=== PATIENT | male | born 1975 | race Caucasian/White ===

== ENCOUNTER 2016-11-13 21:00 | Inpatient (IN) | payer OTHER ==
[~2016-11-13] VITALS: Ht 185.4 cm; Wt 77.1 kg
--- NOTE | ~2016-11-13 | HP ---
Unit #: [id number] #: [id number] Patient: FREDERICK FERRER [id number] [place] [address] [id number] MR#: [id number] NAME: FREDERICK FERRER. ROOM: [facility] Age: 40 Sex: M Admission Date: 11/14/2016 : 1975 Attending Physician: Luis Hammond M.D. Admitting Physician: Luis Hammond M.D. Primary Care Physician: Generic Doctor Not In System HISTORY AND PHYSICAL HISTORY OF PRESENT ILLNESS The patient is a 40-year-old male admitted to [facility] on 11/14/2016 for suicidal ideations and methamphetamine abuse. PAST MEDICAL HISTORY Hepatitis C. PAST SURGICAL HISTORY None reported. 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 He is homeless. He smokes one pack of cigarettes daily. Drinks daily alcohol and methamphetamines every other day. FAMILY MEDICAL HISTORY Noncontributory. ALLERGIES Aspirin and sulfa CURRENT MEDICATIONS The patient is not on any home medications. REVIEW OF SYSTEMS CONSTITUTIONAL: No fever or chills. HEENT: Denies any sore throat, ear pain or runny nose. CARDIOVASCULAR: Denies chest pain, irregular heart rhythm or palpitations. CHEST: Denies shortness of breath or cough. No hemoptysis. GASTROINTESTINAL: Denies nausea, vomiting, diarrhea or chronic constipation. ENDOCRINE: Denies history of increased thirst or urination. No recent significant weight loss or gain. GENITOURINARY: Denies dysuria, frequency, or hematuria. SKIN: Denies any rashes. HEMATOLOGIC: Denies history of increased bleeding or bruising. MUSCULOSKELETAL: Denies any hot, swollen joints. No generalized muscle pain. NEUROLOGIC: Denies problems with vision or speech. No frequent, severe headaches. No numbness, tingling or weakness in any extremities. Denies loss of bladder or bowel control. PHYSICAL EXAM Unit #: [id number] #: [id number] Patient: FREDERICK FERRER GENERAL: She is awake, alert and oriented in no acute distress. VITAL SIGNS: Temperature 98.5, heart rate 94, respiration 18, blood pressure 142/84. HEIGHT: 6'1". WEIGHT: 170 pounds. SKIN: Warm and dry without rash or lesion. HEENT: Normocephalic. TMs not viewed. Oral and nasal passages clear. Conjunctivae clear. PERRLA. EOMs intact. NECK: Supple without lymphadenopathy or thyromegaly. HEART: Regular rate and rhythm without murmur. LUNGS: Clear. ABDOMEN: Soft, nontender. : Not done. EXTREMITIES: No evidence of cyanosis, clubbing or edema. Moves all without focal deficit. NEUROLOGICAL: Grossly within normal limits. Cranial Nerves: II: Visual curtis are intact. III, IV AND : Extraocular movements are intact. Pupils are equal, round and reactive to light. V: Facial sensation is grossly normal. VII: Facial movements and expression are normal. VIII: Auditory acuity grossly intact. IX, X: Uvula is midline. Phonation is normal. XI: Patient shrugs shoulders and turns head normally. XII: Tongue protrudes in the midline. Sensory and Motor Function: Sensory and motor sensation is grossly normal. Motor: moves all extremities well. IMPRESSION 1. Psychiatric admission. 2. Hepatitis C. 3. Polysubstance abuse. RECOMMENDATIONS Psychiatric per psychiatrist. MEDICAL: 1. No contraindication to participate in facility activities. MEDICAL PROGNOSIS Good. MEDICAL CONDITION Stable. Dictated by... Elmira Vazquez/rachelle TD: 11/15/2016 00:47 JOB #: [id number] Unit #: [id number] #: [id number] Patient: FREDERICK FERRER HISTORY AND PHYSICAL Page 1 of 1 X BUZZ CARRERA APRN HISTORY AND PHYSICAL
--- NOTE | ~2016-11-13 | PA ---
Unit #: [id number] #: [id number] Patient: FREDERICK FERRER [id number] [facility] [address] [place] [address] [id number] I MR#: [id number] NAME: FREDERICK FERRER. ROOM: P176 Age: 40 Sex: M Admission Date: 11/14/2016 : 1975 Date of Assessment: 11/14/2016 Attending Physician: Luis Hammond M.D. Admitting Physician: Luis Hammond M.D. Primary Care Physician: Generic Doctor Not In System PSYCHIATRIC ASSESSMENT DATE OF SERVICE 11/14/2016. INFORMANTS The patient's reliability, poor; chart reliability, good. CHIEF COMPLAINT Suicidal ideation, paranoia. HISTORY OF PRESENT ILLNESS Mr. Egan is a 40-year-old male, well known to this facility from his previous admission in 2011, presented with the above-mentioned complaint. The patient was treated at [facility] in 2011, inpatient at [facility] 2015, inpatient at [facility] for chemical dependency in 2016. The patient reported that he is suicidal and used eight of a gram of meth at 9 a.m. and the patient reported he wanted either to hang himself or run his truck in the wall. The patient reports that he and his girlfriend of 2 years broke up recently and reports that he does not want anything to live. For now, the patient has been fighting addiction for year. The patient reports that he was clean from alcohol for the last 5 years and stated that he wanted to drank today. The patient reported history of financial problem, history of hepatitis C, breaking up with girlfriend are the recent stressor. The patient reports decreased sleep, sleeping 5 hours. Poor appetite, loss of 15 pounds. The patient is extremely paranoid that he reports that he cannot eat any food as he is scared and he needs to open package by himself. The patient reported tobacco use, age of onset 16; alcohol, age of onset 16; opioid use in the past; amphetamine, age of onset 20; reported longest period of sobriety, 2 months; last period of sobriety in 2004. The patient reported no history of blackouts or withdrawal symptom, but history of IV drug abuse, history of hepatitis C. Currently reporting irritability, headache, muscle cramps, depressed mood, poor appetite, poor concentration, restlessness, sleep problems, tremor, and pleasant dreams. Needing inpatient admission at this time for psychiatric stabilization. PAST PSYCHIATRIC HISTORY Remarkable for history of previous treatment for depression, suicidal ideation, and substance abuse in the past as mentioned above at various facility, [facility], and [facility]. FAMILY HISTORY SOCIAL HISTORY History of substance abuse problem in father. According to the intake reports, no known history of any abuse. History of legal charges, several Unit #: [id number] #: [id number] Patient: FREDERICK FERRER, assault, heroin possession charges, paraphernalia, still on probation. No court date. MEDICAL HISTORY Hepatitis C. MEDICATION HISTORY None. ALLERGIES No known drug allergies. SUBSTANCE ABUSE HISTORY Please see above. REVIEW OF SYSTEMS HEENT: Eyes, clear. Ears, nose, mouth, and throat; clear. CARDIOVASCULAR: Unremarkable. RESPIRATORY: Unremarkable. GI: Unremarkable. : Unremarkable. SKIN: Unremarkable. LYMPH NODE: Unremarkable. NEUROLOGIC: Unremarkable. ENDOCRINE: Unremarkable. HEMATOLOGIC: Unremarkable. ALLERGIC/IMMUNOLOGIC: Unremarkable. MUSCULOSKELETAL: Muscle strength and tone, no atrophy or abnormal movement. Gait normal. MENTAL STATUS EXAMINATION CONSTITUTIONAL: Measurement of vital signs; temperature is 98.5, heart rate 94, respiratory rate 18, blood pressure is 142/84. Weight 170 pounds. GENERAL APPEARANCE: The patient dressed casually. The patient did not show any facial deformity. MUSCULOSKELETAL: Please see above. PSYCHIATRIC EXAMINATION Description of speech; regular rate, normal volume, normal articulation, coherent. Description of thought process, goal directed. Description of association, intact. Description of abnormal psychotic thinking; guarded, paranoid, delusional. Description of the patient's judgment, concerning everyday activity, poor. Social situation, poor. Concerning psychiatric condition, poor. The patient is having suicidal ideation. Denied any homicidal ideation. Complete mental status examination; oriented in time, place, and person. Recent and remote memory, fair. Attention span and concentration, fair. Language, able to name object and repeat phrases. Fund of knowledge, aware of current event and passive vocabulary intact. Mood and affect, sad and dysphoric. Insight and judgment, fair to poor. ASSETS AND LIABILITIES Assets, the patient is articulate and able to take care of his ADL. Liability, history of substance abuse, depression. ADMITTING DIAGNOSES Psychiatric: Major depressive disorder, recurrent, severe, F33.2; Unit #: [id number] #: [id number] Patient: FREDERICK FERRER psychosis, not otherwise specified, F29.0; amphetamine use disorder, severe, F15.20. Secondary diagnosis: Deferred. Medical diagnosis: Hepatitis C. Stressors: Psychosocial stressors. PSYCHIATRIC PLAN 1. Advised to admit the patient on the inpatient unit. Provide safe, supportive, and structured environment. 2. Ordered labs; CBC, CMP, UA, and UDS. 3. Precaution for self-harm, detox protocol, and detox monitoring. 4. Monitor the patient's mood and behavior. If needed, consider medication such as SSRI. The patient to attend all the programing in group therapy, individual therapy, medication management. Advised Celexa for depression and Zyprexa for psychosis. TREATMENT GOAL To attain euthymic mood, gain insight into his problem, and learn coping skills. DISCHARGE PLAN Plan to stabilize the patient and consider followup in outpatient program. ESTIMATED LENGTH OF STAY 5 days. Dictated by... Luis Hammond M.D. ABRIL/robbie TD: 11/15/2016 04:10 JOB #: [id number] PSYCHIATRIC ASSESSMENT Page 1 of 1 X Luis Hammond MD X PSYCHIATRIC ASSESSMENT
--- NOTE | ~2016-11-13 | DS ---
Unit #: [id number] #: [id number] Patient: FREDERICK FERRER [id number] [place] [address] [id number] I MR#: [id number] NAME: FREDERICK FERRER. ROOM: [facility] Age: 40 Sex: M Admission Date: 11/14/2016 : 1975 Discharge Date: 11/17/2016 Attending Physician: Luis Hammond M.D. Primary Care Physician: Generic Doctor Not In System DISCHARGE SUMMARY REASON FOR ADMISSION Suicidal ideation. DIAGNOSTIC STUDIES LABORATORY RESULTS: Potassium 5.4. Urine toxicology was positive for methamphetamine. HOSPITAL COURSE The patient was admitted to inpatient unit on 11/14/2016 and discharged on 11/17/2016. The patient was treated with chemical dependency group, structured milieu, medication management, psychoeducation, psychotherapy, expressive therapy. The patient was responsive to treatment. Subsequently, the patient was discharged with a plan to follow up in outpatient program. DISCHARGE MEDICATIONS Trazodone 50 mg at bedtime for sleep, Celexa 20 mg daily for mood symptom, and Zyprexa 5 mg b.i.d. for mood stabilization. DISCHARGE DIAGNOSES Psychiatric: Major depressive disorder, recurrent, severe, F33.2; psychosis, not otherwise specified, F29.0; amphetamine use disorder, severe, F15.20. Secondary diagnosis: Deferred. Medical diagnosis: Hepatitis C. Stressors: Psychosocial stressor. DISCHARGE INSTRUCTIONS The patient to follow up in outpatient clinic as per director social. CONDITION ON DISCHARGE The patient was pleasant and cooperative. Denied any psychotic symptom or any suicidal ideation. PROGNOSIS Guarded. DIET AND ACTIVITY As tolerated. Unit #: [id number] #: [id number] Patient: FREDERICK FERRER Dictated by... Jessica Fofana/robbie TD: 11/17/2016 17:13 JOB #: [id number] DISCHARGE SUMMARY Page 1 of 1 X Luis Hammond MD X DISCHARGE SUMMARY
--- NOTE | ~2016-11-13 | PN ---
Unit #: [id number] #: [id number] Patient: FREDERICK FERRER [id number] [facility] [address] [place] [address] [id number] I MR#: [id number] NAME: FREDERICK FERRER. ROOM: P176 Age: 40 Sex: M Admission Date: 11/14/2016 : 1975 Attending Physician: Luis Hammond M.D. Admitting Physician: Luis Hammond M.D. Primary Care Physician: Generic Doctor Not In System [facility] PROGRESS NOTES DATE 11/15/2016 DISCUSSION Mr. Egan is a 40-year-old male seen on 11/15/2016. Patient interviewed. Chart reviewed. Obtained information from nursing staff. Patient is noncompliant with medication. Reports feeling paranoid in taking medication. Also, not eating food from tray, eating only chips, which are sealed and also milk from the carton, which is sealed. Patient still having psychotic symptoms. The patient is prescribed medication. Encourage patient to take medication. Complete review of system unremarkable. MENTAL STATUS EXAMINATION General appearance, patient dressed casually, thin built. Attention span, concentration fair. Oriented in place and person. Mood and affect labile. Patient guarded, paranoid, delusional, passive SI. Recent and remote memory poor. Insight and judgement poor. DIAGNOSES 1. Mood disorder NOS. 2. Amphetamine abuse. 3. Polysubstance abuse. ASSESSMENT/PLAN Advised to continue with current medication and therapeutic protocol. If needed, consider further adjustment of medication. Continue to encourage patient to take medication. Dictated by... Jessica Fofana/dayami TD: 11/16/2016 22:58 JOB #: [id number] Unit #: [id number] #: [id number] Patient: FREDERICK FERRER [facility] PROGRESS NOTES Page 1 of 1 X Luis Hammond MD PROGRESS NOTE
--- NOTE | ~2016-11-13 | PN ---
Unit #: [id number] #: [id number] Patient: FREDERICK FERRER [id number] [facility] [address] [place] [address] [id number] I MR#: [id number] NAME: FREDERICK FERRER. ROOM: P176 Age: 40 Sex: M Admission Date: 11/14/2016 : 1975 Attending Physician: Luis Hammond M.D. Admitting Physician: Luis Hammond M.D. Primary Care Physician: Generic Doctor Not In System [facility] PROGRESS NOTES DATE OF SERVICE: 11/16/2016 DISCUSSION Frederick Ferrer is a 40-year-old male. The patient interviewed, chart reviewed, and obtained information from nursing staff. The patient sad, depressed, withdrawn, isolative, but able to contract for safety, requested for HIV and hepatitis test. The patient reports that he would like to go to a rehab, able to maintain safe behavior. REVIEW OF SYSTEMS Complete review of systems unremarkable. MENTAL STATUS EXAMINATION General appearance; the patient dressed casually, withdrawn, isolative, guarded and paranoid. Attention span and concentration, fair. Oriented in time, place, and person. Mood and affect, labile. Speech, monotone. Thought process, concrete. The patient denied any thoughts of harming self or others, but somewhat guarded. Recent and remote memory, poor. Insight and judgment, poor. DIAGNOSES Major depressive disorder, recurrent; psychosis, not otherwise specified; amphetamine use disorder, severe. ASSESSMENT AND PLAN Advised to continue with current medication and therapeutic protocol. If needed, consider further adjustment of medication. Dictated by... Jessica Fofana/robbie TD: 11/17/2016 03:05 JOB #: [id number] Unit #: [id number] #: [id number] Patient: FREDERICK FERRER [facility] PROGRESS NOTES Page 1 of 1 X Luis Hammond MD PROGRESS NOTE
[~2016-11-13 21:00] MED LIST: ACETAMINOPHEN PO; ALBUTEROL17 GM INH; BACLOFEN10 MG PO; FLEXERIL10 MG PO; NO MEDICATIONS; PHENERGAN25 MG PO; ULTRAM PO; VICODIN PO
[2016-11-14 14:01] LABS: BASOPHIL% 0.5 % (0-2.5); EOSINOPHIL# 0.2 X10e3 (0-0.7); EOSINOPHIL% 3.6 % (0.0-7.0); HEMATOCRIT 47.7 % (38.0-50.0); HEMOGLOBIN 16.1 gm/dL (13.0-16.0); LYMPHOCYTE# 1.9 X10e3 (1.0-3.5); MEAN CORPUSCULAR HEMOGLOBIN 28.6 PG (28-34); MEAN CORPUSCULAR HGB CONC 33.7 g/dL (30-36); MEAN PLATELET VOLUME 7.6 FL (6.5-11.5); MONOCYTE# 0.9 X10e3 (0-1.0); MONOCYTE% 15.5 % (3.0-12.0); NEUTROPHIL# 2.8 X10e3 (1.5-7.1); NEUTROPHIL% 47.4 % (40-75); PLATELET COUNT 213 X10e3 (140-420); RED BLOOD COUNT 5.61 X10e (3.90-5.60); RED CELL DISTRIBUTION WIDTH 14.6 % (11.0-15.5); WHITE BLOOD COUNT 5.8 X10e3 (4.0-10.5)
[2016-11-14 14:15] LABS: DIFF IND NO
[2016-11-14 14:17] LABS: ALBUMIN SERUM 4.3 g/dL (3.5-5.0); BUN/CREATININE RATIO 12.72; CALCIUM SERUM 9.5 mg/dL (8.4-10.2); CREATININE SERUM 1.1 mg/dL (0.6-1.4); GLOM FILT RATE Estimated 83.5 mL/min (>60); POTASSIUM 5.4 mmol/L (3.5-5.1); PROTEIN TOTAL SERUM 7.3 g/dL (6.0-8.3)
[2016-11-20 13:13] LABS: HA AB IGM (HEPPAN) Nonreactive (()); HB CORE AB IGM (HEPPAN) Nonreactive (Nonreactive); HB S AG (HEPPAN) Nonreactive (Nonreactive); HEP C AB (HEPPAN) Reactive (Nonreactive)
== END 2016-11-17 09:40 | DRG 885 ==
LOC: P1E 11-14 02:56
PROVIDERS: Psychiatry & Neurology Psychiatry
PROC: HZ2ZZZZ Detoxification Services for Substance Abuse Treatment (ICD-10-PCS; principal; 2016-11-14)
DX: F33.3 Major depressive disorder, recurrent, severe with psychotic symptoms (principal); F15.20 Other stimulant dependence, uncomplicated; B19.20 Unspecified viral hepatitis C without hepatic coma; Z88.6 Allergy status to analgesic agent; Z88.2 Allergy status to sulfonamides; Z91.14 Patient's other noncompliance with medication regimen; F19.10 Other psychoactive substance abuse, uncomplicated
CPT/HCPCS: 80053; 80074; 85025; 87522; 87806

== ENCOUNTER 2016-11-29 08:00 | Inpatient (IN) | payer OTHER ==
[~2016-11-29] VITALS: Ht 182.9 cm; Wt 77.1 kg
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
--- NOTE | ~2016-11-29 | PN ---
Unit #: [id number] #: [id number] Patient: FREDERICK FERRER [id number] [facility] [address] [place] [address] [id number] I MR#: [id number] NAME: FREDERICK FERRER. ROOM: P186 Age: 41 Sex: M Admission Date: 11/29/2016 : 1975 Attending Physician: Luis Hammond M.D. Admitting Physician: Luis Hammond M.D. Primary Care Physician: Generic Doctor Not In System [facility] PROGRESS NOTES DATE OF SERVICE 12/02/2016 DISCUSSION Frederick Ferrer is a 41-year-old male seen on 12/02/2016. Patient interviewed, chart reviewed. Obtained information from nursing staff. Patient continues to report feeling sad, depressed, withdrawn, isolative. Reported having suicidal thoughts. Patient was unable to contract for safety. Complete review of systems unremarkable. MENTAL STATUS EXAMINATION General appearance, patient dressed casually. Attention span and concentration fair. Oriented to time, place and person. Mood and affect sad, depressed, withdrawn, isolative. Reported suicidal thoughts. Denied any plan. Recent and remote memory poor. Insight and judgement poor. DIAGNOSES Mood disorder NOS ASSESSMENT/PLAN Advise to continue with current medication. Patient to continue with current treatment on the inpatient unit. If needed consider further adjustment of medication. Patient is currently on Zyprexa, trazodone, Celexa, vistaril combination. Dictated by... Jessica Fofana/rachelle TD: 12/02/2016 22:54 JOB #: [id number] Unit #: [id number] #: [id number] Patient: FREDERICK FERRER PROGRESS NOTES Page 1 of 1 X Luis Hammond MD PROGRESS NOTE
--- NOTE | ~2016-11-29 | PA ---
Unit #: [id number] #: [id number] Patient: FREDERICK FERRER [id number] [facility] [address] [place] [address] [id number] I MR#: [id number] NAME: FREDERICK FERRER. ROOM: P186 Age: 41 Sex: M Admission Date: 11/29/2016 : 1975 Date of Assessment: 11/29/2016 Attending Physician: Luis Hammond M.D. Admitting Physician: Luis Hammond M.D. Primary Care Physician: Generic Doctor Not In System PSYCHIATRIC ASSESSMENT INFORMANTS The patient reliability, fair informant and chart reliability, good. CHIEF COMPLAINT Depression. HISTORY OF PRESENT ILLNESS Mr. Frederick Ferrer is a 41-year-old male, who presented with the above-mentioned complaint. The patient reported that he has problem with depression. Also, the patient reported "I have been using mostly meth, not a lot." The patient also reported use of heroin. The patient reported recent stressors including splitting up with ex. The patient reported feeling of hopelessness, worthlessness, sad, and depressed. The patient reported use of meth 0.5 to 1 g mixed with heroin. The patient reports being sober from alcohol for the last 5 years. The patient reports that he recently left [facility] without completing the program. The patient reports that he is currently homeless and not taking medication. The patient reports having auditory hallucination, paranoid thinking, and racing thoughts. Denied any homicidal ideation, but having suicidal ideation. Needing inpatient admission at this time for psychiatric stabilization. The patient reported tobacco use, age of onset 16; alcohol, age of onset 16; opioid, age of onset 22; and amphetamine, age of onset 20. No history of any blackouts or withdrawal symptom. History of IV drug abuse. History of hepatitis and withdrawal symptoms. Currently, reported irritability, headache, muscle cramps, depressed mood, DTs, poor appetite, poor concentration, restlessness, sleep problem, tremor, and bad dreams. PAST PSYCHIATRIC HISTORY Remarkable for history of [facility] in [facility]/2016, 05/2011, 01/2012, 06/2015, 06/2016. FAMILY HISTORY AND SOCIAL HISTORY The patient currently homeless and poor support system. Family psychiatric illness is remarkable for history of substance abuse in father. No history of abuse. No legal charges. MEDICAL HISTORY Remarkable for history of hepatitis C. Musculoskeletal; muscle strength and tone, no atrophy or abnormal movement. Gait normal. MEDICATION HISTORY Unit #: [id number] #: [id number] Patient: FREDERICK FERRER None. ALLERGIES No known drug allergies. SUBSTANCE ABUSE HISTORY Please see above. REVIEW OF SYSTEMS HEENT: Eyes, clear. Ears, nose, mouth, and throat; clear. CARDIOVASCULAR: Unremarkable. RESPIRATORY: Unremarkable. GI: Unremarkable. : Unremarkable. SKIN: Unremarkable. LYMPH NODE: Unremarkable. NEUROLOGIC: Unremarkable. ENDOCRINE: Unremarkable. HEMATOLOGIC: Unremarkable. ALLERGIC/IMMUNOLOGIC: Unremarkable. MUSCULOSKELETAL: Muscle strength and tone, no atrophy or abnormal movement. Gait normal. MENTAL STATUS EXAMINATION CONSTITUTIONAL: Measurement of vital signs; temperature 98.2, heart rate 88, respiratory rate 17, oxygen saturation 98%, and blood pressure 123/77. Height 6 feet and weight 170 pounds. GENERAL APPEARANCE: The patient dressed casually. The patient did not show any facial deformity. MUSCULOSKELETAL: Please see above. PSYCHIATRIC EXAMINATION Description of speech; regular rate, normal volume, normal articulation, and coherent. Description of thought process, goal directed. Description of association, intact. Description of abnormal psychotic thinking; the patient denied any hallucination, but depression and suicidal ideation. Denied any homicidal ideation. Substance abuse. Description of the patient's judgment: Concerning everyday activity, poor. Social situation, poor. Concerning psychiatric condition, poor. Complete mental status examination; oriented in time, place, and person. Recent and remote memory, fair. Attention span and concentration, fair. Language, able to name object and repeat phrases. Fund of knowledge, aware of current event and passive vocabulary intact. Mood and affect, sad and dysphoric. Insight and judgment, fair to poor. ASSETS AND LIABILITIES Assets, the patient is articulate and able to take care of his ADL. Liability, history of substance abuse and depression. ADMITTING DIAGNOSES Psychiatric: Major depressive disorder, recurrent, severe, F33.2; amphetamine use disorder, severe, F15.20; and opioid use disorder, severe, F11.20. Secondary diagnosis: Deferred. Medical diagnosis: Hepatitis C. Unit #: [id number] #: [id number] Patient: FREDERICK FERRER Stressors: Psychosocial stressors, homelessness, financial problem, and poor support system. PSYCHIATRIC PLAN AND TREATMENT GOAL AND DISCHARGE PLAN 1. Advised to admit the patient on the inpatient unit. Provide safe, supportive, and structured environment. 2. Ordered labs; CBC, CMP, UA, and UDS. 3. Detox protocol, detox monitoring, SP1 precaution. 4. Advised the patient to attend all the programing, group therapy, individual therapy, and chemical dependency group. Plan to consider medications for depression such as SSRI. Treatment goal to attain euthymic mood, gain insight into his problem, and learn coping skills. 5. The patient to start with the trazodone 50 mg at bedtime for sleep, Celexa 20 mg daily for depression, and Zyprexa 5 mg b.i.d. for psychosis and mood stabilization. DISCHARGE PLAN Plan to stabilize the patient and consider followup in outpatient program. ESTIMATED LENGTH OF STAY 5 days. Dictated by... Jessica Fofana/robbie TD: 11/29/2016 13:41 JOB #: [id number] PSYCHIATRIC ASSESSMENT Page 1 of 1 X Luis Hammond MD PSYCHIATRIC ASSESSMENT
--- NOTE | ~2016-11-29 | PN ---
Unit #: [id number] #: [id number] Patient: FREDERICK FERRER [id number] [facility] [address] [place] [address] [id number] I MR#: [id number] NAME: FREDERICK FERRER. ROOM: P186 Age: 41 Sex: M Admission Date: 11/29/2016 : 1975 Attending Physician: Luis Hammond M.D. Admitting Physician: Luis Hammond M.D. Primary Care Physician: Generic Doctor Not In System [facility] PROGRESS NOTES DATE 12/05/2016 DISCUSSION Frederick is a 41-year-old male, seen on 12/05/2016. The patient interviewed, chart reviewed, and obtained information from the nursing staff. The patient reports making progress, denied any thoughts of harming self or others but still somewhat anxious. The patient was informed about his blood test, HIV test was nonreactive, hepatitis screen pending. REVIEW OF SYSTEMS Complete review of systems unremarkable. MENTAL STATUS EXAMINATION General appearance: Patient dressed casually. Attention span and concentration, fair. Oriented in time, place, and person. Mood and affect, labile. Speech, monotone. Thought process, concrete. The patient denied any thoughts of harming self or others or any psychotic symptoms. Recent and remote memory, poor. Insight and judgment, poor. DIAGNOSIS Mood disorder, NOS. ASSESSMENT/PLAN Advised to continue with the current medication and therapeutic protocol, and if needed consider further adjustment of medication with a plan to consider discharge next week. Dictated by... Jessica Fofana/maximo TD: 12/07/2016 05:30 JOB #: [id number] Unit #: [id number] #: [id number] Patient: FREDERICK FERRER [facility] PROGRESS NOTES Page 1 of 1 X Luis Hammond MD X PROGRESS NOTE
--- NOTE | ~2016-11-29 | PN ---
Unit #: [id number] #: [id number] Patient: FREDERICK FERRER [id number] [facility] [address] [place] [address] [id number] MR#: [id number] NAME: FREDERICK FERRER. ROOM: P186 Age: 41 Sex: M Admission Date: 11/29/2016 : 1975 Attending Physician: Luis Hammond M.D. Admitting Physician: Luis Hammond M.D. Primary Care Physician: Generic Doctor Not In System [facility] PROGRESS NOTES DATE OF SERVICE 12/01/2016 DISCUSSION Mr. Frederick Ferrer is a 41-year-old male seen on 12/01/2016. Patient interviewed, chart reviewed. Obtained information from nursing staff. Patient was compliant and cooperative. Mood sad, dysphoric, flat affect, guarded. The patient tolerating medication fairly well. No aggressive behavior reporting feeling anxious. Complete review of systems unremarkable. MENTAL STATUS EXAMINATION General appearance, patient dressed casually. Attention span and concentration fair. Oriented to place and person. Mood and affect labile. Speech monotone. Thought process concrete. Patient denied any thoughts of harming self or others. Recent and remote memory poor. Insight and judgement poor. DIAGNOSES Mood disorder NOS ASSESSMENT/PLAN Advise to continue with current medication and therapeutic protocol. If needed consider further adjustment of medication. Dictated by... Jessica Fofana/rachelle TD: 12/02/2016 04:11 JOB #: [id number] Unit #: [id number] #: [id number] Patient: FREDERICK FERRER PROGRESS NOTES Page 1 of 1 X Luis Hammond MD PROGRESS NOTE
--- NOTE | ~2016-11-29 | DS ---
Unit #: [id number] #: [id number] Patient: FREDERICK FERRER [id number] [facility] [address] [place] [address] [id number] I MR#: [id number] NAME: FREDERICK FRERER. ROOM: [facility] Age: 41 Sex: M Admission Date: 11/29/2016 : 1975 Discharge Date: 12/06/2016 Attending Physician: Luis Hammond M.D. Primary Care Physician: Generic Doctor Not In System DISCHARGE SUMMARY REASON FOR ADMISSION Depression, drug treatment. DIAGNOSTIC STUDIES LABORATORY RESULTS: Urine drug screen is positive for amphetamine. HOSPITAL COURSE The patient was admitted to inpatient unit on 11/29/2016 and discharged on 12/06/2016. The patient was treated on the inpatient unit with group therapy, individual therapy, medication management, structured milieu. The patient was responsive to treatment, showed improvement. Denied any suicidal or homicidal ideation or psychotic symptom. The patient was subsequently discharged to treatment at [facility]. DISCHARGE MEDICATIONS Zyprexa 5 mg at bedtime for mood stabilization, Cogentin 1 mg at night for EPS symptom, and Vistaril 25 mg t.i.d. for anxiety. DISCHARGE DIAGNOSES Psychiatric: Major depressive disorder, recurrent, severe, F33.2; amphetamine use disorder, severe, F15.20; opioid use disorder, severe, F11.20. Secondary diagnosis: Deferred. Medical diagnosis: Hepatitis C. Stressors: Psychosocial stressor, homelessness, financial problems, and poor support system. DISCHARGE INSTRUCTIONS The patient to follow up in outpatient clinic as per licensed clinical social worker. CONDITION ON DISCHARGE The patient was pleasant and cooperative. Denied any psychotic symptom or any suicidal ideation. PROGNOSIS Guarded. DIET AND ACTIVITY As tolerated. Unit #: [id number] #: [id number] Patient: FREDERICK FERRER Dictated by... Luis Hammond M.D. SZC/robbie TD: 12/06/2016 16:42 JOB #: [id number] DISCHARGE SUMMARY Page 1 of 1 X Luis Hammond MD X DISCHARGE SUMMARY
--- NOTE | ~2016-11-29 | PN ---
Unit #: [id number] #: [id number] Patient: FREDERICK FERRER [id number] [place] [address] [id number] I MR#: [id number] NAME: FREDERICK FERRER. ROOM: P186 Age: 41 Sex: M Admission Date: 11/29/2016 : 1975 Attending Physician: Luis Hammond M.D. Admitting Physician: Luis Hammond M.D. Primary Care Physician: Karla Doctor Not In System [facility] PROGRESS NOTES DATE OF SERVICE: 11/30/2016 DISCUSSION Frederick Ferrer is a 41-year-old male, seen on 11/30/2016. The patient interviewed, chart reviewed, and obtained information from nursing staff. The patient was admitted with depressive symptom. The patient is sad, depressed, withdrawn, isolative, flat affect. The patient vital signs; 98.4, 47, 93/59. Continues to be isolative, flat affect, withdrawn. The patient is currently on Celexa 20 mg daily, Zyprexa 5 mg b.i.d., trazodone 75 mg at bedtime. REVIEW OF SYSTEMS Complete review of systems unremarkable. MENTAL STATUS EXAMINATION General appearance; the patient dressed casually. Attention span and concentration, fair. Oriented in time, place, and person. Mood and affect, sad, and depressed. Speech, monotone. Thought process, concrete. The patient denied any thoughts of harming self or others. Recent and remote memory, poor. Insight and judgment, poor. DIAGNOSES Major depressive disorder, recurrent, severe, F33.2. Amphetamine use disorder, severe, F15.20. Opioid use disorder, severe, F11.20. History of hepatitis C. ASSESSMENT AND PLAN Advised to continue with current medication and therapeutic protocol. If needed, consider further adjustment of medication. Dictated by... Jessica Fofana/robbie TD: 12/01/2016 00:51 JOB #: [id number] Unit #: [id number] #: [id number] Patient: FREDERICK FERRER [facility] NOTES Page 1 of 1 X Luis Hammond MD NOTE
--- NOTE | ~2016-11-29 | HP ---
Unit #: [id number] #: [id number] Patient: FREDERICK FERRER [id number] [place] [address] [id number] I MR#: [id number] NAME: FREDERICK FERRER. ROOM: P186 Age: 41 Sex: M Admission Date: 11/29/2016 : 1975 Attending Physician: Luis Hammond M.D. Admitting Physician: Luis Hammond M.D. Primary Care Physician: Generic Doctor Not In System HISTORY AND PHYSICAL HISTORY OF PRESENT ILLNESS Frederick is a 41 year [address] to [facility] because of his continued illicit substance abuse which includes methamphetamine and heroin. He shoots his drugs. PAST MEDICAL HISTORY 1. Long history of illicit substance abuse to include meth and IV heroin. 2. Hepatitis C. PAST SURGICAL HISTORY Appendectomy. ALLERGIES No known drug allergies. SOCIAL HISTORY Smokes 2 packs per day. Denies alcohol. Admits to a long history of illicit substance abuse to include IV heroin and methamphetamine. FAMILY HISTORY Medically noncontributory. REVIEW OF SYSTEMS CONSTITUTIONAL: No fever or chills. HEENT: Denies any sore throat, ear pain or runny nose. CARDIOVASCULAR: Denies chest pain, irregular heart rhythm or palpitations. CHEST: Denies shortness of breath or cough. No hemoptysis. GASTROINTESTINAL: Denies nausea, vomiting, diarrhea or chronic constipation. ENDOCRINE: Denies history of increased thirst or urination. No recent significant weight loss or gain. GENITOURINARY: Denies dysuria, frequency, or hematuria. SKIN: Denies any rashes. HEMATOLOGIC: Denies history of increased bleeding or bruising. MUSCULOSKELETAL: Denies any hot, swollen joints. No generalized muscle pain. NEUROLOGIC: Denies problems with vision or speech. No frequent, severe headaches. No numbness, tingling or weakness in any extremities. Denies loss of bladder or bowel control. CURRENT MEDICATIONS 1. Detox protocol. 2. Celexa 20 mg q. day. Unit #: [id number] #: [id number] Patient: FREDERICK FERRER 3. Trazodone 75 mg q.h.s. 4. Zyprexa 5 mg b.i.d. PHYSICAL EXAMINATION GENERAL: Alert, well nourished. No apparent distress. VITAL SIGNS: Blood pressure 100/60, heart rate 80, respirations 16, and temperature 98.6. WEIGHT: 170. HEIGHT: 6 feet 0 inches. SKIN: Warm and dry without rash or lesion. HEENT: Normocephalic. TMs not viewed. Oral and nasal passages clear. Conjunctivae clear. PERRLA. EOMs intact. NECK: Supple without lymphadenopathy or thyromegaly. HEART: Regular rate and rhythm without murmur. LUNGS: Clear. ABDOMEN: Soft, nontender. : Not done. EXTREMITIES: No evidence of cyanosis, clubbing or edema. Moves all without focal deficit. NEUROLOGICAL: Grossly within normal limits. Cranial Nerves: II: Visual curtis are intact. III, IV AND : Extraocular movements are intact. Pupils are equal, round and reactive to light. V: Facial sensation is grossly normal. VII: Facial movements and expression are normal. VIII: Auditory acuity grossly intact. IX, X: Uvula is midline. Phonation is normal. XI: Patient shrugs shoulders and turns head normally. XII: Tongue protrudes in the midline. Sensory and Motor Function: Sensory and motor sensation is grossly normal. Motor: moves all extremities well. Coordination: Gait is normal. Deep Tendon Reflexes: Intact. IMPRESSION Psychiatric admission. RECOMMENDATIONS PSYCHIATRIC: Per psychiatrist. MEDICAL: I see no contraindications to participate in this facility's activities. MEDICAL PROGNOSIS Good. MEDICAL CONDITION Stable. Dictated by... Carlee White P.A.-C. for Jessica Sewell/collin TD: 11/30/2016 12:07 JOB #: [id number] Unit #: [id number] #: [id number] Patient: FREDERICK FERRER HISTORY AND PHYSICAL Page 1 of 1 X Carlee White HISTORY AND PHYSICAL
--- NOTE | ~2016-11-29 | PN ---
Unit #: [id number] #: [id number] Patient: FREDERICK FERRER [id number] [facility] [address] [place] [address] [id number] I MR#: [id number] NAME: FREDERICK FERRER. ROOM: P186 Age: 41 Sex: M Admission Date: 11/29/2016 : 1975 Attending Physician: Luis Hammond M.D. Admitting Physician: Luis Hammond M.D. Primary Care Physician: Generic Doctor Not In System [facility] PROGRESS NOTES DATE 12/04/2016 DISCUSSION Frederick Ferrer is a 41-year-old male seen on 12/04/2016. Patient interviewed. Chart reviewed. Obtained information from nursing staff. Patient reported that he is feeling better. Still somewhat anxious. Vital signs stable, 98.4, 47, 94/61. Patient was withdrawn, isolative, flat affect, guarded. Complete review of system unremarkable. MENTAL STATUS EXAMINATION General appearance, patient dressed casually. Attention span, concentration fair. Oriented in time, place and person. Mood and affect sad, dysphoric. Speech monotone. Thought process concrete. Patient denied any thoughts of harming self or others. Recent and remote memory poor. Insight and judgement poor. DIAGNOSES 1. Mood disorder NOS. 2. Amphetamine use disorder, severe. ASSESSMENT/PLAN Advised to continue with current medication and therapeutic protocol. If needed, consider further adjustment of medication. Patient's lab report of HIV and hepatitis panel is pending. Dictated by... Jessica Fofana/dayami TD: 12/04/2016 22:10 JOB #: [id number] Unit #: [id number] #: [id number] Patient: FREDERICK FERRER [facility] PROGRESS NOTES Page 1 of 1 X Luis Hammond MD X PROGRESS NOTE
--- NOTE | ~2016-11-29 | PN ---
Unit #: [id number] #: [id number] Patient: FREDERICK FERRER [id number] [facility] [address] [place] [address] [id number] MR#: [id number] NAME: FREDERICK FERRER. ROOM: P1 Age: 41 Sex: M Admission Date: 11/29/2016 : 1975 Attending Physician: Luis Hammond M.D. Admitting Physician: Luis Hammond M.D. Primary Care Physician: Generic Doctor Not In System [id number] PROGRESS NOTES DATE OF SERVICE 12/03/2016 DISCUSSION Mr. Frederick Ferrer is a 41-year-old male seen on 12/03/2016. Patient continues to report having suicidal ideation and anxiety. Patient also reported dental pain, requested for larger portions, also requested for HIV and hepatitis testing. Sad, depressed, withdrawn. COMPLETE REVIEW OF SYSTEMS Unremarkable. MENTAL STATUS EXAMINATION GENERAL APPEARANCE: Patient dressed casually. ATTENTION SPAN AND CONCENTRATION: Fair. ORIENTATION: Time, place and person. MOOD AND AFFECT: Sad, depressed. SPEECH: Monotone. THOUGHT PROCESS: [place]. Patient denied any homicidal ideation, but having suicidal thoughts, unable to contract for safety. RECENT AND REMOTE MEMORY: Poor. INSIGHT AND JUDGMENT: Poor. DIAGNOSIS Mood disorder, NOS ASSESSMENT/PLAN Advised to continue with current medication and therapeutic protocol. If needed, consider further adjustment in medication. Ordered Ensure t.i.d. and larger portion of all meals; hepatitis panel and HIV testing; medical consultation for patient's toothache, possible abscess evaluation and treatment. Dictated by... Jessica Fofana/frankie Unit #: [id number] #: [id number] Patient: FREDERICK FERRER TD: 12/04/2016 03:05 JOB #: [id number] [facility] NOTES Page 1 of 1 X Luis Hammond MD PROGRESS NOTE
[2016-11-30 09:41] LABS: BASOPHIL% 0.6 % (0-2.5); EOSINOPHIL# 0.2 X10e3 (0-0.7); EOSINOPHIL% 4.3 % (0.0-7.0); HEMATOCRIT 45.3 % (38.0-50.0); HEMOGLOBIN 15.8 gm/dL (13.0-16.0); LYMPHOCYTE# 1.9 X10e3 (1.0-3.5); LYMPHOCYTE% 36.2 % (17.0-45.0); MEAN CELL VOLUME 85.5 FL (83-96); MEAN CORPUSCULAR HEMOGLOBIN 29.8 PG (28-34); MEAN CORPUSCULAR HGB CONC 34.9 g/dL (30-36); MEAN PLATELET VOLUME 7.6 FL (6.5-11.5); MONOCYTE# 0.8 X10e3 (0-1.0); MONOCYTE% 14.3 % (3.0-12.0); NEUTROPHIL# 2.4 X10e3 (1.5-7.1); NEUTROPHIL% 44.6 % (40-75); PLATELET COUNT 197 X10e3 (140-420); RED CELL DISTRIBUTION WIDTH 14.7 % (11.0-15.5); WHITE BLOOD COUNT 5.3 X10e3 (4.0-10.5)
[2016-11-30 09:43] LABS: DIFF IND NO
[2016-11-30 10:01] LABS: ALBUMIN SERUM 3.7 g/dL (3.5-5.0); BUN/CREATININE RATIO 17.77; CALCIUM SERUM 8.8 mg/dL (8.4-10.2); CREATININE SERUM 0.9 mg/dL (0.6-1.4); GLOM FILT RATE Estimated 105.7 mL/min (>60); POTASSIUM 4.2 mmol/L (3.5-5.1); PROTEIN TOTAL SERUM 6.4 g/dL (6.0-8.3)
[2016-12-02 09:38] LABS: URINE APPEARANCE CLOUDY; URINE BILIRUBIN NEG (NEG); URINE BLOOD NEG (NEG); URINE COLOR YELLOW; URINE GLUCOSE NORM (NORM); URINE KETONE NEG (NEG); URINE LEUKOCYTE ESTERASE NEG (NEG); URINE NITRATE NEG (NEG); URINE PROTEIN NEG (NEG); URINE SPECIFIC GRAVITY 1.025 (1.003-1.035); URINE UROBILINOGEN NORM (NORM)
[2016-12-02 10:06] LABS: AMPHETAMINE POS (NEG); BARBITURATES NEG (NEG); BENZODIAZEPINES NEG (NEG); COCAINE NEG (NEG); MARIJUANA NEG (NEG); OPIATES NEG (NEG); TRICYCLIC ANTIDEPRESSANTS NEG (NEG); U METHADONE NEG (NEG)
[2016-12-10 17:45] LABS: HA AB IGM (HEPPAN) Nonreactive (()); HB CORE AB IGM (HEPPAN) Nonreactive (Nonreactive); HB S AG (HEPPAN) Nonreactive (Nonreactive); HEP C AB (HEPPAN) Reactive (Nonreactive)
== END 2016-12-06 10:55 | DRG 885 ==
LOC: P1E 09:57 → POF 09:57 → P1E 10:04
PROVIDERS: Psychiatry & Neurology Psychiatry
PROC: HZ2ZZZZ Detoxification Services for Substance Abuse Treatment (ICD-10-PCS; principal; 2016-11-29)
DX: F33.2 Major depressive disorder, recurrent severe without psychotic features (principal); F11.20 Opioid dependence, uncomplicated; R45.851 Suicidal ideations; F15.20 Other stimulant dependence, uncomplicated; Z86.19 Personal history of other infectious and parasitic diseases; F17.210 Nicotine dependence, cigarettes, uncomplicated; F39 Unspecified mood [affective] disorder
CPT/HCPCS: 80053; 80074; 80307; 81003; 85025; 86592; 87522; 87806

== ENCOUNTER 2016-12-13 19:00 | Inpatient (IN) | payer OTHER ==
[~2016-12-13] VITALS: Ht 185.4 cm; Wt 75.7 kg
--- NOTE | ~2016-12-13 | PN ---
Unit #: [id number] #: [id number] Patient: FREDERICK FERRER [id number] [facility] [address] [place] [address] [id number] I MR#: [id number] NAME: FREDERICK FERRER. ROOM: P214 Age: 41 Sex: M Admission Date: 12/13/2016 : 1975 Attending Physician: Luis Hammond M.D. Admitting Physician: Luis Hammond M.D. Primary Care Physician: Generic Doctor Not In System [facility] PROGRESS NOTES DATE OF SERVICE 12/14/2016 DISCUSSION Frederick is a 41-year-old male seen on 12/14/2016. Patient interviewed, chart reviewed. Obtained information from nursing staff. Patient continues to report feeling sad, depressed, anxious. Reported having suicidal ideation and paranoia. Complete review of systems unremarkable. MENTAL STATUS EXAMINATION General appearance, patient dressed casually. Attention span and concentration fair. Oriented to time, place and person. Mood and affect labile. Speech monotone. Thought process concrete. Patient reported having (1) suicidal ideation, depression. Recent and remote memory poor. Insight and judgement poor. DIAGNOSES Major depressive disorder recurrent severe. Amphetamine use disorder severe. Psychosis NOS. ASSESSMENT/PLAN Advise to continue with Remeron 15 mg at bedtime, Cogentin 1 mg at bedtime, Zyprexa 10 mg at bedtime, vistaril 25 mg three times a day. If needed consider further adjustment of medication. Dictated by... Jessica Fofana/rachelle TD: 12/15/2016 02:23 JOB #: [id number] Unit #: [id number] #: [id number] Patient: FREDERICK FERRER [facility] PROGRESS NOTES Page 1 of 1 X Luis Hammond MD X PROGRESS NOTE
--- NOTE | ~2016-12-13 | HP ---
Unit #: [id number] #: [id number] Patient: FREDERICK FERRER [id number] [place] [address] [id number] I MR#: [id number] NAME: FREDERICK FERRER. ROOM: P214 Age: 41 Sex: M Admission Date: 12/13/2016 : 1975 Attending Physician: Luis Hammond M.D. Admitting Physician: Luis Hammond M.D. Primary Care Physician: Generic Doctor Not In System HISTORY AND PHYSICAL HISTORY OF PRESENT ILLNESS Frederick is a 41 year old admitted to [address] [place] [address] because of his continued illicit substance abuse. PAST MEDICAL HISTORY 1. Long history of illicit substance abuse to include meth and IV heroin. 2. Hepatitis C. PAST SURGICAL HISTORY Appendectomy. ALLERGIES No known drug allergies. SOCIAL HISTORY Smokes 2 packs per day. Denies alcohol. Admits to a long history of illicit substance abuse to include IV heroin and methamphetamine. FAMILY HISTORY Medically noncontributory. REVIEW OF SYSTEMS CONSTITUTIONAL: No fever or chills. HEENT: Denies any sore throat, ear pain or runny nose. CARDIOVASCULAR: Denies chest pain, irregular heart rhythm or palpitations. CHEST: Denies shortness of breath or cough. No hemoptysis. GASTROINTESTINAL: Denies nausea, vomiting, diarrhea or chronic constipation. ENDOCRINE: Denies history of increased thirst or urination. No recent significant weight loss or gain. GENITOURINARY: Denies dysuria, frequency, or hematuria. SKIN: Denies any rashes. HEMATOLOGIC: Denies history of increased bleeding or bruising. MUSCULOSKELETAL: Denies any hot, swollen joints. No generalized muscle pain. NEUROLOGIC: Denies problems with vision or speech. No frequent, severe headaches. No numbness, tingling or weakness in any extremities. Denies loss of bladder or bowel control. CURRENT MEDICATIONS 1. Remeron 15 mg q.h.s. 2. Cogentin 1 mg q.h.s. Unit #: [id number] #: [id number] Patient: FREDERICK FERRER 3. Zyprexa 10 mg q.h.s. 4. Vistaril 25 mg t.i.d. 5. Milk of Magnesia p.r.n. 6. Maalox p.r.n. 7. Tylenol p.r.n. 8. Nicotine patch 14 mg daily. PHYSICAL EXAMINATION GENERAL: Alert, well-nourished, in no apparent distress. VITAL SIGNS: Blood pressure 102/64, heart rate 60, respirations 16, temperature 98.6. SKIN: Warm and dry without rash or lesion. HEENT: Normocephalic. TMs not viewed. Oral and nasal passages clear. Conjunctivae clear. PERRLA. EOMs intact. NECK: Supple without lymphadenopathy or thyromegaly. HEART: Regular rate and rhythm without murmur. LUNGS: Clear. ABDOMEN: Soft, nontender. : Not done. EXTREMITIES: No evidence of cyanosis, clubbing or edema. Moves all without focal deficit. NEUROLOGICAL: Grossly within normal limits. Cranial Nerves: II: Visual curtis are intact. III, IV AND : Extraocular movements are intact. Pupils are equal, round and reactive to light. V: Facial sensation is grossly normal. VII: Facial movements and expression are normal. VIII: Auditory acuity grossly intact. IX, X: Uvula is midline. Phonation is normal. XI: Patient shrugs shoulders and turns head normally. XII: Tongue protrudes in the midline. Sensory and Motor Function: Sensory and motor sensation is grossly normal. Motor: moves all extremities well. Coordination: Gait is normal. Deep Tendon Reflexes: Intact. IMPRESSION Psychiatric admission. RECOMMENDATIONS PSYCHIATRIC: Per psychiatrist. MEDICAL: See no contraindication to participate in facility's activities. MEDICAL PROGNOSIS Good. MEDICAL CONDITION Stable. Dictated by... Carlee White P.A.-C. for Jessica Sewell/dayami TD: 12/14/2016 17:17 JOB #: [id number] Unit #: [id number] #: [id number] Patient: FREDERICK FERRER HISTORY AND PHYSICAL Page 1 of 1 X Carlee White HISTORY AND PHYSICAL
--- NOTE | ~2016-12-13 | DS ---
Unit #: [id number] #: [id number] Patient: FREDERICK FERRER [id number] [place] [address] [id number] MR#: [id number] NAME: FREDERICK FERRER. ROOM: [facility] Age: 41 Sex: M Admission Date: 12/13/2016 : 1975 Discharge Date: 12/15/2016 Attending Physician: Luis Hammond M.D. Primary Care Physician: Generic Doctor Not In System DISCHARGE SUMMARY REASON FOR ADMISSION Substance abuse. DIAGNOSTIC STUDIES LABORATORY RESULTS: Remarkable for urine drug screen positive for amphetamine. HOSPITAL COURSE The patient was admitted to inpatient unit on 12/13/2016 and discharged on 12/15/2016. The patient was treated with group therapy, individual therapy, and chemical dependency group. The patient was responsive to treatment, but still having anxiety. The patient reported that his daughter had a surgery and he wanted to leave. The patient was subsequently discharged with a plan to follow up through outpatient. DISCHARGE MEDICATIONS None. The patient was on Remeron 15 mg at bedtime for sleep, Cogentin 1 mg at bedtime for EPS symptom, and Zyprexa 10 mg at bedtime for psychosis. DISCHARGE DIAGNOSES Psychiatric: Major depressive disorder, recurrent, severe, F33.2 and amphetamine use disorder, severe, F15.20. Secondary diagnosis: Deferred. Medical diagnosis: None. Stressors: Psychosocial stressors. DISCHARGE INSTRUCTIONS The patient to follow up in outpatient clinic as per hospital social worker. CONDITION ON DISCHARGE The patient was pleasant and cooperative. Denied any psychotic symptoms or any suicidal ideation. PROGNOSIS Guarded. DIET AND ACTIVITY As tolerated. Unit #: [id number] #: [id number] Patient: FREDERICK FERRER Dictated by... Luis Hammond M.D. SZC/robbie TD: 12/15/2016 17:34 JOB #: [id number] DISCHARGE SUMMARY Page 1 of 1 X Luis Hammond MD X DISCHARGE SUMMARY
--- NOTE | ~2016-12-13 | PA ---
Unit #: [id number] #: [id number] Patient: FREDERICK FERRER [id number] [facility] [address] [place] [address] [id number] MR#: [id number] NAME: FREDERICK FERRER. ROOM: P214 Age: 41 Sex: M Admission Date: 12/13/2016 : 1975 Date of Assessment: 12/14/2016 Attending Physician: Luis Hammond M.D. Admitting Physician: Luis Hammond M.D. Primary Care Physician: Generic Doctor Not In System PSYCHIATRIC ASSESSMENT INFORMANTS The patient reliability, fair informant and chart reliability, good. CHIEF COMPLAINT Depression. HISTORY OF PRESENT ILLNESS Mr. Egan is a 41-year-old male, seen on with the above-mentioned complaint. The patient reported currently homeless, living on street, complaining of paranoia and suicidal ideation. Reported loss of girlfriend. The patient reported suicidal ideation with a plan to drive into traffic. The patient denied any homicidal ideation. Reported using quarter gram of meth a day. The patient reported last used 4 months ago. The patient denied any withdrawal symptom. Reported hallucination. The patient needing inpatient admission at this time for psychiatric stabilization. PAST PSYCHIATRIC HISTORY Remarkable for history of inpatient treatment at [facility] in 2016 and inpatient [facility] in 2016. FAMILY HISTORY AND SOCIAL HISTORY Poor support system. Currently, homeless. No legal problems. MEDICAL HISTORY Remarkable for history of hepatitis C. Musculoskeletal; muscle strength and tone, no atrophy or abnormal movement. Gait normal. MEDICATION HISTORY None. ALLERGIES No known drug allergies. SUBSTANCE ABUSE HISTORY Tobacco use, age of onset 13; alcohol, age of onset 14; opioid, age of onset 36; amphetamine, age of onset 39. Last period of sobriety in 2017. Longest period of sobriety 5 months. The patient reported history of blackout. No history of any hepatitis, withdrawals, or IV drug use. REVIEW OF SYSTEMS HEENT: Eyes, clear. Ears, nose, mouth, and throat; clear. CARDIOVASCULAR: Unremarkable. Unit #: [id number] #: [id number] Patient: FREDERICK FERRER RESPIRATORY: Unremarkable. GI: Unremarkable. : Unremarkable. SKIN: Unremarkable. LYMPH NODE: Unremarkable. NEUROLOGIC: Unremarkable. ENDOCRINE: Unremarkable. HEMATOLOGIC: Unremarkable. ALLERGIC/IMMUNOLOGIC: Unremarkable. MUSCULOSKELETAL: Muscle strength and tone, no atrophy or abnormal movement. Gait normal. MENTAL STATUS EXAMINATION CONSTITUTIONAL: Measurement of vital signs; temperature 97.7, heart rate 67, respirations 18, blood pressure 102/64. Height 6 feet 1 inch and weight 167 pounds. GENERAL APPEARANCE: The patient dressed casually. The patient did not show any facial deformity. MUSCULOSKELETAL: Please see above. PSYCHIATRIC EXAMINATION Description of speech; regular rate, normal volume, normal articulation, and coherent. Description of thought process, goal directed. Description of association, intact. Description of abnormal psychotic thinking; the patient denied any hallucination or delusions, but paranoia and suicidal ideation. Description of patient's judgment: Concerning everyday activity, poor. Social situation, poor. Concerning psychiatric condition, poor. Complete mental status examination; oriented in time, place, and person. Attention span and concentration, fair. Language, intact. Fund of knowledge, fair. Vocabulary, fair. Mood and affect, sad and dysphoric. Insight and judgment, fair to poor. ASSETS AND LIABILITIES Assets, the patient is articulate and able to take care of his ADL. Liability; history of substance abuse, depression, and suicidal ideation. ADMITTING DIAGNOSES Psychiatric: Major depressive disorder, recurrent, severe, F33.2 and amphetamine use disorder, severe, F15.20. Secondary diagnosis: Deferred. Medical diagnosis: None. Stressors: Psychosocial stressors. PSYCHIATRIC PLAN AND TREATMENT GOAL AND DISCHARGE PLAN 1. Advised to admit the patient on the inpatient unit. Provide safe, supportive, and structured environment. 2. Ordered labs; CBC, CMP, UA, and UDS. 3. Precaution for aggression and self-harm. 4. The patient to attend all the programing, group therapy, individual therapy, and chemical dependency group. Treatment goal to attain euthymic mood, gain insight into his problem, and learn coping skills. DISCHARGE PLAN Unit #: [id number] #: [id number] Patient: FREDERICK FERRER Plan to stabilize the patient and consider followup in outpatient program. ESTIMATED LENGTH OF STAY 3 to 5 days. Dictated by... Luis Hammond M.D. ABRIL/robbie TD: 12/14/2016 17:09 JOB #: [id number] PSYCHIATRIC ASSESSMENT Page 1 of 1 X Luis Hammond MD PSYCHIATRIC ASSESSMENT
[2016-12-14 09:49] LABS: BASOPHIL# 0.1 X10e3 (0-0.3); BASOPHIL% 0.8 % (0-2.5); EOSINOPHIL# 0.2 X10e3 (0-0.7); EOSINOPHIL% 3.5 % (0.0-7.0); HEMATOCRIT 44.3 % (38.0-50.0); HEMOGLOBIN 15.4 gm/dL (13.0-16.0); LYMPHOCYTE# 2.6 X10e3 (1.0-3.5); LYMPHOCYTE% 36.7 % (17.0-45.0); MEAN CELL VOLUME 84.1 FL (83-96); MEAN CORPUSCULAR HEMOGLOBIN 29.2 PG (28-34); MEAN CORPUSCULAR HGB CONC 34.7 g/dL (30-36); MEAN PLATELET VOLUME 7.7 FL (6.5-11.5); MONOCYTE# 1.2 X10e3 (0-1.0); MONOCYTE% 17.1 % (3.0-12.0); NEUTROPHIL# 2.9 X10e3 (1.5-7.1); NEUTROPHIL% 41.9 % (40-75); PLATELET COUNT 218 X10e3 (140-420); RED BLOOD COUNT 5.27 X10e (3.90-5.60); RED CELL DISTRIBUTION WIDTH 14.3 % (11.0-15.5)
[2016-12-14 09:51] LABS: DIFF IND NO
[2016-12-14 09:58] LABS: BILIRUBIN,TOTAL 0.9 mg/dL (0.2-2.0); BUN/CREATININE RATIO 13.63; CALCIUM SERUM 8.9 mg/dL (8.4-10.2); CREATININE SERUM 1.1 mg/dL (0.6-1.4); POTASSIUM 3.9 mmol/L (3.5-5.1); PROTEIN TOTAL SERUM 7.2 g/dL (6.0-8.3)
== END 2016-12-15 16:30 | disposition home or self-care (01) | DRG 885 ==
LOC: P2S 22:01
PROVIDERS: Psychiatry & Neurology Psychiatry
DX: F33.2 Major depressive disorder, recurrent severe without psychotic features (principal); F15.20 Other stimulant dependence, uncomplicated; F17.210 Nicotine dependence, cigarettes, uncomplicated
CPT/HCPCS: 80053; 85025

== ENCOUNTER 2016-12-18 14:00 | Inpatient (IN) | payer OTHER ==
[~2016-12-18] VITALS: Ht 188 cm; Wt 76.7 kg
--- NOTE | ~2016-12-18 | PA ---
Unit #: [id number] #: [id number] Patient: FREDERICK FERRER [id number] [facility] [address] [place] [address] [id number] MR#: [id number] NAME: FREDERICK FERRER. ROOM: P203 Age: 41 Sex: M Admission Date: 12/18/2016 : 1975 Date of Assessment: 12/19/2016 Attending Physician: Luis Hammond M.D. Admitting Physician: Luis Hammond M.D. Primary Care Physician: Generic Doctor Not In System PSYCHIATRIC ASSESSMENT INFORMANTS The patient reliability, fair informant and chart reliability, good. CHIEF COMPLAINT Depression. HISTORY OF PRESENT ILLNESS Mr. Frederick Ferrer is a 41-year-old male, who was recently admitted on 12/13/2016 and left on 12/15/2016 because of sickness in family. The patient reports that he returned to get some help. The patient reported that he is feeling extremely paranoid and anxious and thinks everybody is there to get him. The patient reported feeling paranoid, sad, depressed, anxious, and feels people are plotting against him. The patient stated that he left the hospital on , but was not ready to do so because of family emergency. The patient reports that he has thoughts of harming himself, the patient reports with a gun or knife. The patient stated that he has thoughts of attacking strangers whom he feels they are plotting against him. The patient stated that he feels people are backing him in the corner and does not know what will happen if he loses control. The patient needing inpatient admission at this time for psychiatric stabilization. PAST PSYCHIATRIC HISTORY Remarkable for history of previous admission as mentioned above. History of admission in 12/14/2016 and 10/2016. FAMILY HISTORY AND SOCIAL HISTORY Poor support system. Currently, homeless. No legal problem. MEDICAL HISTORY Remarkable for history of hepatitis C. Musculoskeletal; muscle strength and tone, no atrophy or abnormal movement. Gait normal. MEDICATION HISTORY None. ALLERGIES No known drug allergies. SUBSTANCE ABUSE HISTORY Tobacco use, age of onset 13; alcohol, age of onset 14; opioid, age of onset 36; and amphetamine, age of onset 39. Last period of sobriety in 2016. Longest period of sobriety 5 months. The patient reported history Unit #: [id number] #: [id number] Patient: FREDERICK FERRER of blackouts. No history of any hepatitis, withdrawals, or IV drug use. REVIEW OF SYSTEMS HEENT: Eyes, clear. Ears, nose, mouth, and throat; clear. CARDIOVASCULAR: Unremarkable. RESPIRATORY: Unremarkable. GI: Unremarkable. : Unremarkable. SKIN: Unremarkable. LYMPH NODE: Unremarkable. NEUROLOGIC: Unremarkable. ENDOCRINE: Unremarkable. HEMATOLOGIC: Unremarkable. ALLERGIC/IMMUNOLOGIC: Unremarkable. MUSCULOSKELETAL: Muscle strength and tone, no atrophy or abnormal movement. Gait normal. MENTAL STATUS EXAMINATION CONSTITUTIONAL: Measurement of vital signs; temperature 97.5, heart rate 88, respiratory rate 18, oxygen saturation 98%, and blood pressure 104/84. Height 6 feet 2 inches and weight 169 pounds. GENERAL APPEARANCE: The patient dressed casually. The patient did not show any facial deformity. MUSCULOSKELETAL: Please see above. PSYCHIATRIC EXAMINATION Description of speech; regular rate, normal volume, normal articulation, and coherent. Description of thought process, goal directed. Description of association, intact. Description of abnormal psychotic thinking; the patient reported feeling paranoid, delusional, suicidal ideation, and homicidal ideation, nonspecific. Description of the patient's judgment: Concerning everyday activity, poor. Social situation, poor. Concerning psychiatric condition, poor. Complete mental status examination; oriented in time, place, and person. Recent and remote memory, fair. Attention span and concentration, fair. Language, intact. Fund of knowledge, fair. Vocabulary, fair. Mood and affect, sad and dysphoric. Insight and judgment, fair to poor. ASSETS AND LIABILITIES Assets, the patient is articulate and able to take care of his ADL. Liability; history of substance abuse, depression, and psychosis. ADMITTING DIAGNOSES Psychiatric: Major depressive disorder, recurrent, severe, F33.2; psychosis, not otherwise specified, F29.0; and amphetamine use disorder, severe, F15.20. Secondary diagnosis: Deferred. Medical diagnosis: Hepatitis C. Stressors: Psychosocial stressors. PSYCHIATRIC PLAN AND TREATMENT GOAL AND DISCHARGE PLAN 1. Advised to admit the patient on the inpatient unit. Provide safe, supportive, and structured environment. 2. Ordered labs; CBC, CMP, UA, and UDS. Unit #: [id number] #: [id number] Patient: FREDERICK FERRER 3. Precaution for psychosis, aggression, and self-harm. 4. Advised to resume home medication; Zyprexa 10 mg at bedtime, Cogentin 1 mg at bedtime, Remeron 15 mg at bedtime and advised lorazepam 1 mg q.4 p.r.n. for severe anxiety. The patient to attend all the programing, group therapy, individual therapy, and chemical dependency group. Treatment goal to attain euthymic mood, gain insight into his problem, and learn coping skills. DISCHARGE PLAN Plan to stabilize the patient and consider followup in outpatient program. ESTIMATED LENGTH OF STAY 3 to 5 days. Dictated by... Jessica Fofana/robbie TD: 12/19/2016 18:53 JOB #: [id number] PSYCHIATRIC ASSESSMENT Page 1 of 1 X Luis Hammond MD X PSYCHIATRIC ASSESSMENT
--- NOTE | ~2016-12-18 | PN ---
Unit #: [id number] #: [id number] Patient: FREDERICK FERRER [id number] [facility] [address] [place] [address] [id number] I MR#: [id number] NAME: FREDERICK FERRER. ROOM: P203 Age: 41 Sex: M Admission Date: 12/18/2016 : 1975 Attending Physician: Luis Hammond M.D. Admitting Physician: Luis Hammond M.D. Primary Care Physician: Generic Doctor Not In System [facility] NOTES DATE OF SERVICE 12/21/2016 DISCUSSION Frederick Ferrer is a 41-year-old male. Patient interviewed, chart reviewed. Obtained information from nursing staff. Patient was compliant, cooperative, withdrawn, isolative, guarded. Sad, dysphoric mood. Patient still having problem with irritability, mood lability. Complete review of systems unremarkable. MENTAL STATUS EXAMINATION General appearance, patient dressed casually. Attention span and concentration poor. Oriented to place and person. Mood and affect labile. Speech monotone. Thought process concrete. Patient denied any thoughts of harming others but having passive SI, withdrawn, isolative, guarded. Recent and remote memory poor. Insight and judgement poor. DIAGNOSES Major depressive disorder recurrent severe. ASSESSMENT/PLAN Advise to continue with current medication and therapeutic protocol. If needed consider further adjustment of medication. Dictated by... Jessica Fofana/rachelle TD: 12/21/2016 23:29 JOB #: [id number] [facility]ESS NOTES Page 1 of 1 X Luis Hammond MD PROGRESS NOTE
--- NOTE | ~2016-12-18 | PN ---
Unit #: [id number] #: [id number] Patient: FREDERICK FERRER [id number] [facility] [address] [place] [address] [id number] MR#: [id number] NAME: FREDERICK FERRER. ROOM: P203 Age: 41 Sex: M Admission Date: 12/18/2016 : 1975 Attending Physician: Luis Hammond M.D. Admitting Physician: Luis Hammond M.D. Primary Care Physician: Generic Doctor Not In System [facility] OF SERVICE: 12/20/2016 DISCUSSION Frederick Ferrer is a 41-year-old male, seen on 12/20/2016. The patient interviewed, chart reviewed, and obtained information from nursing staff. The patient withdrawn, isolative, guarded, still reporting having severe anxiety, paranoia, and mood lability. The patient's vital signs; temperature 97.6, heart rate 80, and blood pressure 109/64. The patient tolerating medication fairly well. REVIEW OF SYSTEMS Complete review of systems unremarkable. MENTAL STATUS EXAMINATION General appearance, the patient dressed casually. Attention span and concentration, fair. Oriented in time, place, and person. Mood and affect; sad, dysphoric, flat affect, withdrawn, and isolative. Speech, monotone. Passive SI. Recent and remote memory, poor. Insight and judgment, poor. DIAGNOSES Major depressive disorder, recurrent, severe, F33.2; psychosis, not otherwise specified, F29.0; and amphetamine use disorder. ASSESSMENT AND PLAN Advised to continue with current medication and therapeutic protocol. If needed, consider further adjustment of medication. The patient's urine drug screen for this admission is pending. Dictated by... Jessica Fofana/robbie TD: 12/20/2016 20:08 JOB #: [id number] Unit #: [id number] #: [id number] Patient: FREDERICK FERRER [facility] NOTES Page 1 of 1 X Luis Hammond MD X PROGRESS NOTE
--- NOTE | ~2016-12-18 | PN ---
Unit #: [id number] #: [id number] Patient: FREDERICK FERRER [id number] [facility] [address] [place] [address] [id number] I MR#: [id number] NAME: FREDERICK FERRER. ROOM: P203 Age: 41 Sex: M Admission Date: 12/18/2016 : 1975 Attending Physician: Luis Hammond M.D. Admitting Physician: Luis Hammond M.D. Primary Care Physician: Generic Doctor Not In System [facility] NOTES DATE OF SERVICE 12/22/2016 DISCUSSION Mr. Frederick Ferrer is a 41-year-old male seen on 12/22/2016. Patient interviewed, chart reviewed. Obtained information from nursing staff. Patient was isolative, flat affect. Still reporting anxiety but denied any thoughts of harming self or others. Complete review of systems unremarkable. MENTAL STATUS EXAMINATION General appearance, patient dressed casually. Attention span and concentration fair. Oriented to time, place and person. Mood and affect labile. Speech monotone. Thought process concrete. Patient denied any thoughts of harming self or others. Recent and remote memory poor. Insight and judgement poor. DIAGNOSES 1. Major depressive disorder recurrent severe. 2. Amphetamine use disorder severe. ASSESSMENT/PLAN Advise to continue with current medication and therapeutic protocol. If needed consider further adjustment of medication. Dictated by... Jessica Fofana/rachelle TD: 12/23/2016 05:05 JOB #: [id number] Unit #: [id number] #: [id number] Patient: FREDERICK FERRER [facility] NOTES Page 1 of 1 X Luis Hammond MD X PROGRESS NOTE
--- NOTE | ~2016-12-18 | HP ---
Unit #: [id number] #: [id number] Patient: FREDERICK FERRER [id number] [place] [address] [id number] I MR#: [id number] NAME: FREDERICK FERRER. ROOM: P203 Age: 41 Sex: M Admission Date: 12/18/2016 : 1975 Attending Physician: Luis Hammond M.D. Admitting Physician: Luis Hammond M.D. Primary Care Physician: Generic Doctor Not In System HISTORY AND PHYSICAL Patient is a 41-year-old male admitted to [address] [place] [address] on 12/18/2016 for poly substance use. Patient had a recent admission on 12/13/2016 where a full history and physical was completed. That history and physical had been reviewed, no changes need to be made. Dictated by... Elmira Vazquez/rachelle TD: 12/20/2016 01:19 JOB #: [id number] HISTORY AND PHYSICAL Page 1 of 1 X BUZZ CARRERA APRN X HISTORY AND PHYSICAL
--- NOTE | ~2016-12-18 | DS ---
Unit #: [id number] #: [id number] Patient: FREDERICK FERRER [id number] [facility] [address] [place] [address] [id number] I MR#: [id number] NAME: FREDERICK FERRER. ROOM: P203 Age: 41 Sex: M Admission Date: 12/18/2016 : 1975 Discharge Date: 12/22/2016 Attending Physician: Luis Hammond M.D. Primary Care Physician: Generic Doctor Not In System DISCHARGE SUMMARY REASON FOR ADMISSION Substance abuse, suicidal ideation. DIAGNOSTIC STUDIES Laboratory data, urine drug screen positive for amphetamines. HOSPITAL COURSE The patient was admitted to inpatient unit on 12/18 and discharged on 12/22/16. The patient was treated with group therapy, individual therapy, medication management. The patient was responsive to treatment and showed improvement. The patient was discharged with the plan to follow up in outpatient program. DISCHARGE DIAGNOSES Psychiatric: [place] I Major depressive disorder, recurrent, severe, F33.2. Psychosis, NOS, F29.0. Amphetamine use disorder, severe, F15.20. [place] II Deferred. [place] III Hepatitis C. [place] IV Psychosocial stressors. [place] V INSTRUCTIONS TO PATIENT Follow up in outpatient clinic as well as older adult social work specialist. DISCHARGE MEDICATIONS 1. Remeron 15 mg at bedtime for sleep and depression 2. Cogentin 1 mg at bedtime for EPS symptoms 3. Zyprexa 10 mg daily for mood stabilization CONDITION AT DISCHARGE The patient is pleasant, cooperative, denied any psychotic symptoms or any suicidal ideation. PROGNOSIS Guarded. DIET AND ACTIVITY As tolerated. Unit #: [id number] #: [id number] Patient: FREDERICK FERRER Dictated by... Jessica Fofana/maximo TD: 01/05/2017 12:06 JOB #: [id number] DISCHARGE SUMMARY Page 1 of 1 X Luis Hammond MD X DISCHARGE SUMMARY
--- NOTE | ~2016-12-18 | PN ---
Unit #: [id number] #: [id number] Patient: FREDERICK FERRER [id number] [facility] [address] [place] [address] [id number] MR#: [id number] NAME: FREDERICK FERRER. ROOM: P203 Age: 41 Sex: M Admission Date: 12/18/2016 : 1975 Attending Physician: Luis Hammond M.D. Admitting Physician: Luis Hammond M.D. Primary Care Physician: Generic Doctor Not In System [facility] NOTES DATE OF SERVICE: 12/19/2016 DISCUSSION Mr. Frederick Ferrer is a 41-year-old male, seen on 12/19/2016. The patient interviewed, chart reviewed, and obtained information from nursing staff. The patient was compliant and cooperative. Mood is sad, dysphoric, withdrawn, isolative, guarded, extremely paranoid, and anxious. REVIEW OF SYSTEMS Complete review of systems unremarkable. MENTAL STATUS EXAMINATION General appearance, the patient dressed casually. Attention span and concentration, fair. Oriented in time, place, and person. Mood and affect, sad and dysphoric. Speech, monotone. Thought process, concrete. The patient denied any thoughts of harming self or others, but having those thoughts off and on and paranoia. Recent and remote memory, poor. Insight and judgment, poor. DIAGNOSES Major depressive disorder, recurrent, severe; psychosis not otherwise specified; and amphetamine use disorder, severe, F15.20. ASSESSMENT AND PLAN Advised to continue with current medication and therapeutic protocol. If needed, consider further adjustment of medication. Dictated by... Jessica Fofana/robbie TD: 12/20/2016 18:12 JOB #: [id number] Unit #: [id number] #: [id number] Patient: FREDERICK FERRER [facility] NOTES Page 1 of 1 X Luis Hammond MD PROGRESS NOTE
== END 2016-12-22 19:39 | disposition home or self-care (01) | DRG 885 ==
LOC: P2S 17:40
DX: F33.3 Major depressive disorder, recurrent, severe with psychotic symptoms (principal); F15.20 Other stimulant dependence, uncomplicated; B19.20 Unspecified viral hepatitis C without hepatic coma; F17.210 Nicotine dependence, cigarettes, uncomplicated; Z59.0 Homelessness

== ENCOUNTER 2017-01-05 11:36 | Inpatient (IN) | payer OTHER ==
[~2017-01-05] VITALS: Ht 185.4 cm; Wt 74.8 kg
--- NOTE | ~2017-01-05 | PN ---
Unit #: [id number] #: [id number] Patient: FREDERICK FERRER [id number] [facility] [address] [place] [address] [id number] I MR#: [id number] NAME: FREDERICK FERRER. ROOM: P179 Age: 41 Sex: M Admission Date: 01/05/2017 : 1975 Attending Physician: Luis Hammond M.D. Admitting Physician: Luis Hammond M.D. Primary Care Physician: Generic Doctor Not In System [facility] NOTES DATE OF SERVICE 01/06/2017 DISCUSSION Frederick is a 41-year-old male seen on 01/06/2017. Patient interviewed, chart reviewed. Obtained information from nursing staff. Patient was compliant and cooperative, withdrawn, isolative, guarded, paranoid. Patient tolerating medication fairly well. Complete review of systems unremarkable. MENTAL STATUS EXAMINATION General appearance, patient dressed casually. Attention span and concentration poor. Oriented to place and person. Mood and affect labile. Speech monotone. Thought process concrete. Patient denied any thoughts of harming others but passive SI, hallucination guarded. Recent and remote memory poor. Insight and judgement poor. DIAGNOSES 1. Major depressive disorder recurrent severe with psychosis NOS. 2. Amphetamine use disorder, severe. ASSESSMENT/PLAN Advise to continue with current medication and therapeutic protocol. If needed consider further adjustment of medication. Dictated by... Jessica Fofana/rachelle TD: 01/07/2017 03:32 JOB #: [id number] Unit #: [id number] #: [id number] Patient: FREDERICK FERRER [facility] NOT[facility] Page 1 of 1 X Luis Hammond MD PROGRESS NOTE
--- NOTE | ~2017-01-05 | PN ---
Unit #: [id number] #: [id number] Patient: FREDERICK FERRER [id number] [facility] [address] [place] [address] [id number] MR#: [id number] NAME: FREDERICK FERRER. ROOM: P179 Age: 41 Sex: M Admission Date: 01/05/2017 : 1975 Attending Physician: Luis Hammond M.D. Admitting Physician: Luis Hammond M.D. Primary Care Physician: Generic Doctor Not In System [facility] NOT[facility] DATE OF SERVICE: 01/08/2017 DISCUSSION Frederick Tanner is a 41-year-old male, seen on 01/08/2017. The patient interviewed, chart reviewed, and obtained information from nursing staff. The patient was compliant and cooperative. Mood was labile, sad, depressed, withdrawn, and isolative. Vital signs; temperature 98.4, heart rate 53, and blood pressure 94/59. The patient continues to be isolative, guarded, and withdrawn. REVIEW OF SYSTEMS Complete review of systems unremarkable. MENTAL STATUS EXAMINATION General appearance, the patient dressed casually. Attention span and concentration, fair. Oriented in time, place, and person. Mood and affect, labile. Speech, monotone. Thought process, concrete. The patient denied any thoughts of harming self or others. Recent and remote memory, poor. Insight and judgment, poor. DIAGNOSES Major depressive disorder, recurrent, severe, with psychotic feature; psychosis, not otherwise specified; and amphetamine use disorder, severe. ASSESSMENT AND PLAN Advised to continue with current medication and therapeutic protocol. If needed, consider further adjustment of medication. Dictated by... Jessica Fofana/robbie TD: 01/10/2017 18:23 JOB #: [id number] Unit #: [id number] #: [id number] Patient: FREDERICK FERRER [facility] PROGRESS NOTES Page 1 of 1 X Luis Hammond MD PROGRESS NOTE
--- NOTE | ~2017-01-05 | HP ---
Unit #: [id number] #: [id number] Patient: FREDERICK FERRER [id number] [facility] [address] [place] [address] [id number] I MR#: [id number] NAME: FREDERICK FERRER. ROOM: P179 Age: 41 Sex: M Admission Date: 01/05/2017 : 1975 Attending Physician: Luis Hammond M.D. Admitting Physician: Luis Hammond M.D. Primary Care Physician: Generic Doctor Not In System HISTORY AND PHYSICAL DATE OF ADMISSION 01/05/2017 HISTORY OF PRESENT ILLNESS Frederick is a 41 year old admitted to [facility] because of his continued polysubstance abuse. The patient was seen and H and P dated 12/24/2016 was reviewed. This is current. No changes. Please see H and P dated 12/14/2016. Dictated by... Cheri SeguraAUlysses. for Jessica Sewell/rachelle TD: 01/05/2017 21:17 JOB #: [id number] HISTORY AND PHYSICAL Page 1 of 1 X Carlee White HISTORY AND PHYSICAL
--- NOTE | ~2017-01-05 | CO ---
Unit #: [id number] #: [id number] Patient: FREDERICK FERRER [id number] [place] [address] [id number] MR#: [id number] NAME: FREDERICK FERRER. ROOM: P179 Age: 41 Sex: M Admission Date: 01/05/2017 : 1975 Attending Physician: Luis Hammond M.D. Primary Care Physician: Karla Doctor Not In System Consultation Date: 01/08/2017 CONSULTATION REPORT HISTORY OF PRESENT ILLNESS Frederick is a 41-year-old male, who has complaints of pain in his right lower tooth that first started several years ago and has been getting worse recently. He has taken antibiotics in the past before, but he is unsure how long it has been. He has not seen a dentist for this problem. He also has complaints of decreased hearing in his right ear, but he believes this is unrelated to the tooth, that also has been going on for a year or more. No fever, body aches, or chills. No trouble eating. No other complaints. PHYSICAL EXAMINATION CARDIAC: Regular rate and rhythm. No murmur, gallop, or rub. RESPIRATORY: Clear to auscultation bilaterally. ORAL: Right-sided lower tooth cavity with a large, approximately 5 mm hole visible. ASSESSMENT AND PLAN Tooth pain. We will begin him on Augmentin 875/125 mg p.o. b.i.d. for 10 days and a social sciences research scientist consult to assess with dental exam. Dictated by... Elmira Ferrer/robbie TD: 01/09/2017 00:51 JOB #: [id number] CONSULTATION REPORT Page 1 of 1 X ALICE ALONSO APRN X CONSULTATION REPORT
--- NOTE | ~2017-01-05 | PA ---
Unit #: [id number] #: [id number] Patient: FREDERICK FERRER [id number] [facility] [address] [id number] I MR#: [id number] NAME: FREDERICK FERRER. ROOM: P179 Age: 41 Sex: M Admission Date: 01/05/2017 : 1975 Date of Assessment: 01/05/2017 Attending Physician: Luis Hammond M.D. Admitting Physician: Luis Hammond M.D. Primary Care Physician: Generic Doctor Not In System PSYCHIATRIC ASSESSMENT INFORMANTS The patient reliability, fair; chart reliability, good. CHIEF COMPLAINT Depression and suicidal ideation. HISTORY OF PRESENT ILLNESS Frederick Ferrer is a 41-year-old male, presented with the above-mentioned complaint. The patient presented with depression and suicidal ideation. The patient was referred from IOP program, reported significant paranoia, mood labile. The patient reported everyone wanting to kill him, reported having suicidal ideation with a plan to cut his throat or hang himself. The patient reported abstaining from meth and heroin. Denied any homicidal ideation. The patient reported mood swing, depression, paranoia. The patient reported continue to use heroin, meth, and needing inpatient admission at this time for psychiatric stabilization. PAST PSYCHIATRIC HISTORY Remarkable [facility] on [facility]. History of previous admission on 12/14/2016 and 11/18/2016. FAMILY HISTORY AND SOCIAL HISTORY The patient has a poor support system and currently homeless. No legal problems. MEDICAL HISTORY Remarkable for history of hepatitis C. Musculoskeletal; muscle strength and tone, no atrophy or abnormal movement. Gait normal. MEDICATION HISTORY None. ALLERGIES No known drug allergies. SUBSTANCE ABUSE HISTORY The patient reported alcohol use, age of onset 13; tobacco use, age of onset 13; alcohol, age of onset 14; opioid, age of onset 36; and amphetamine, age of onset 39. Longest period of sobriety 5 months ago. The patient reported no history of any hepatitis, withdrawal symptom, IV drug use. Unit #: [id number] #: [id number] Patient: FREDERICK FERRER REVIEW OF SYSTEMS HEENT: Eyes, clear. Ears, nose, mouth, and throat; clear. CARDIOVASCULAR: Unremarkable. RESPIRATORY: Unremarkable. GI: Unremarkable. : Unremarkable. SKIN: Unremarkable. LYMPH NODE: Unremarkable. NEUROLOGIC: Unremarkable. ENDOCRINE: Unremarkable. HEMATOLOGIC: Unremarkable. ALLERGIC/IMMUNOLOGIC: Unremarkable. MUSCULOSKELETAL: Muscle strength and tone, no atrophy or abnormal movement. Gait normal. MENTAL STATUS EXAMINATION CONSTITUTIONAL: Measurement of vital signs; temperature 98.4, pulse 97, respirations 18, oxygen saturation 98%, and blood pressure 139/90. GENERAL APPEARANCE: The patient dressed casually. The patient did not show any facial deformity. MUSCULOSKELETAL: Please see above. PSYCHIATRIC EXAMINATION Description of speech; regular rate, normal volume, normal articulation, coherent. Description of thought process, goal directed. Description of association, intact. Description of abnormal psychotic thinking; the patient denied any hallucination or delusions, but suicidal ideation, substance abuse. Description of the patient's judgment, concerning everyday activity, poor. Social situation, poor. Concerning psychiatric condition, poor. Complete mental status examination; oriented in time, place, and person. Recent and remote memory, fair. Attention span and concentration, fair. Language, able to name object and repeat phrases. Fund of knowledge, aware of current event and passive vocabulary intact. Mood and affect, sad and dysphoric. Insight and judgment, fair to poor. ASSETS AND LIABILITIES Assets; the patient is articulate and able to take care of his ADL. Liability; history of substance abuse, depression, and psychosis. ADMITTING DIAGNOSES Psychiatric: Major depressive disorder, recurrent, severe, F33.2; psychosis, not otherwise specified, F29.0; amphetamine use disorder, severe, F15.20. Secondary diagnosis: Deferred. Medical diagnosis: History of hepatitis C. Stressors: Psychosocial stressors. PSYCHIATRIC PLAN AND TREATMENT GOAL AND DISCHARGE PLAN 1. Advised to admit the patient on the inpatient unit. Provide safe, supportive, and structured environment. 2. Ordered labs; CBC, CMP, UA, and UDS. 3. Precaution for psychosis, aggression, and self-harm. 4. Advised to resume home medication. If needed, consider further Unit #: [id number] #: [id number] Patient: FREDERICK FERRER adjustment of medication. The patient to attend group therapy, individual therapy, chemical dependency group. 5. Treatment goal; to attain euthymic mood, gain insight into his problem, and learn coping skills. 6. Discharge plan; plan to stabilize the patient and consider followup in outpatient program. ESTIMATED LENGTH OF STAY 5 days. Dictated by... Jessica Fofana/robbie TD: 01/05/2017 22:04 JOB #: [id number] PSYCHIATRIC ASSESSMENT Page 1 of 1 X Luis Hammond MD X PSYCHIATRIC ASSESSMENT
--- NOTE | ~2017-01-05 | PN ---
Unit #: [id number] #: [id number] Patient: FREDERICK FERRER [id number] [facility] [address] [place] [address] [id number] I MR#: [id number] NAME: FREDERICK FERRER. ROOM: P179 Age: 41 Sex: M Admission Date: 01/05/2017 : 1975 Attending Physician: Luis Hammond M.D. Admitting Physician: Luis Hammond M.D. Primary Care Physician: Generic Doctor Not In System [facility] PROGRESS NOTES DATE 01/09/2017 DISCUSSION Frederick Ferrer is a 41-year-old male, seen on 01/09/2017. The patient reported still having withdrawal symptoms, anxious, nervous, sleeping good, mood labile. The patient requested for larger portions, Ensure, and Orajel for his dental pain. REVIEW OF SYSTEMS Complete review of systems unremarkable. MENTAL STATUS EXAMINATION General appearance: Patient dressed casually. Attention span and concentration, fair. Oriented in time, place, and person. Mood and affect, labile. Speech, monotone. Thought process, concrete. The patient denied any thoughts of harming self or others. Recent and remote memory, poor. Insight and judgment, poor. DIAGNOSES 1. Major depressive disorder, recurrent, severe. 2. Psychosis, NOS. 3. Amphetamine use disorder, severe. ASSESSMENT/PLAN Advised to continue with the current medication and therapeutic protocol, if needed consider further adjustment of medication. Dictated by... Jessica Fofana/maximo TD: 01/10/2017 12:33 JOB #: [id number] Unit #: [id number] #: [id number] Patient: FREDERICK FERRER [facility] PROGRESS NOTES Page 1 of 1 X Luis Hammond MD PROGRESS NOTE
--- NOTE | ~2017-01-05 | PN ---
Unit #: [id number] #: [id number] Patient: FREDERICK FERRER [id number] [facility] [address] [place] [address] [id number] I MR#: [id number] NAME: FREDERICK FERRER. ROOM: P179 Age: 41 Sex: M Admission Date: 01/05/2017 : 1975 Attending Physician: Luis Hammond M.D. Admitting Physician: Luis Hammond M.D. Primary Care Physician: Generic Doctor Not In System [facility] PROGRESS NOTES DATE OF SERVICE 01/07/2017 DISCUSSION Frederick Ferrer is a 41-year-old male seen on 01/07/2017. Patient interviewed, chart reviewed. Obtained information from nursing staff. Patient continues to report feeling sad, dysphoric, irritable, withdrawn, isolative, guarded. Mood was labile, paranoid. Complete review of systems unremarkable. MENTAL STATUS EXAMINATION General appearance, patient dressed casually. Attention span and concentration fair. Oriented to time, place and person. Mood and affect labile. Speech monotone. Thought process concrete. Patient denied any thoughts of harming self or others but guarded, paranoid. Recent and remote memory poor. Insight and judgement poor. DIAGNOSES 1. Major depressive disorder, recurrent severe with psychotic feature. 2. Amphetamine use disorder severe. ASSESSMENT/PLAN Advise to continue with current medication and therapeutic protocol. If needed consider further adjustment of medication. Dictated by... Jessica Fofana/rachelle TD: 01/10/2017 01:54 JOB #: [id number] Unit #: [id number] #: [id number] Patient: FREDERICK FERRER [facility] PROGRESS NOTES Page 1 of 1 X Luis Hammond MD X PROGRESS NOTE
--- NOTE | ~2017-01-05 | DS ---
Unit #: [id number] #: [id number] Patient: FREDERICK FERRER [id number] [facility] [address] [place] [address] [id number] I MR#: [id number] NAME: FREDERICK FERRER. ROOM: P179 Age: 41 Sex: M Admission Date: 01/05/2017 : 1975 Discharge Date: 01/10/2017 Attending Physician: Luis Hammond M.D. Primary Care Physician: Generic Doctor Not In System DISCHARGE SUMMARY REASON FOR ADMISSION Depression, suicidal ideation, paranoia, mood swings. DIAGNOSTIC STUDIES LABORATORY DATA: Urine drug screen positive for amphetamine. HOSPITAL COURSE Patient was admitted to inpatient unit on 01/05/17 and discharged on 01/10/17. Patient was treated with group therapy, individual therapy, medication management. Patient was responsive to treatment but did not participate, isolative, guarded. DISCHARGE DIAGNOSES PSYCHIATRIC: 1. Major depressive disorder, recurrent, severe, F33.2. 2. Psychosis NOS, F29.0. 3. Amphetamine use disorder, severe, F15.20. SECONDARY DIAGNOSIS: Deferred. MEDICAL DIAGNOSIS: History of hepatitis C. STRESSORS: Psychosocial stressor. FOLLOWUP CARE Patient to follow up in outpatient clinic as per social work professor. DISCHARGE MEDICATIONS The patient was treated with the following medication: 1. Zyprexa 10 mg at bedtime for psychosis and mood symptoms. 2. Vistaril 25 mg t.i.d. for anxiety. 3. Augmentin 875 mg b.i.d. for upper respiratory tract infection for 8 days. CONDITION AT DISCHARGE Patient pleasant, cooperative. Denied any psychotic symptoms or any suicidal ideation. PROGNOSIS Guarded. DIET AND ACTIVITY Unit #: [id number] #: [id number] Patient: FREDERICK FERRER As tolerated. Dictated by... Luis Hammond M.D. ABRIL/dayami TD: 01/13/2017 16:27 JOB #: [id number] DISCHARGE SUMMARY Page 1 of 1 X Luis Hammond MD X DISCHARGE SUMMARY
[2017-01-06 09:51] LABS: BASOPHIL% 0.9 % (0-2.5); EOSINOPHIL# 0.3 X10e3 (0-0.7); EOSINOPHIL% 5.1 % (0.0-7.0); HEMATOCRIT 45.9 % (38.0-50.0); HEMOGLOBIN 15.7 gm/dL (13.0-16.0); LYMPHOCYTE# 2.5 X10e3 (1.0-3.5); LYMPHOCYTE% 49.1 % (17.0-45.0); MEAN CELL VOLUME 84.7 FL (83-96); MEAN CORPUSCULAR HEMOGLOBIN 28.9 PG (28-34); MEAN CORPUSCULAR HGB CONC 34.1 g/dL (30-36); MEAN PLATELET VOLUME 7.7 FL (6.5-11.5); MONOCYTE# 0.7 X10e3 (0-1.0); MONOCYTE% 14.3 % (3.0-12.0); NEUTROPHIL# 1.5 X10e3 (1.5-7.1); NEUTROPHIL% 30.6 % (40-75); PLATELET COUNT 220 X10e3 (140-420); RED BLOOD COUNT 5.42 X10e (3.90-5.60); RED CELL DISTRIBUTION WIDTH 14.2 % (11.0-15.5)
[2017-01-06 09:56] LABS: DIFF IND NO
[2017-01-06 10:06] LABS: ALBUMIN SERUM 3.8 g/dL (3.5-5.0); CALCIUM SERUM 8.8 mg/dL (8.4-10.2); GLOM FILT RATE Estimated 93.1 mL/min (>60); POTASSIUM 3.9 mmol/L (3.5-5.1); PROTEIN TOTAL SERUM 6.8 g/dL (6.0-8.3)
[2017-01-08 11:30] LABS: URINE APPEARANCE CLEAR; URINE BILIRUBIN NEG (NEG); URINE BLOOD NEG (NEG); URINE COLOR YELLOW; URINE GLUCOSE NEG (NEG); URINE KETONE NEG (NEG); URINE LEUKOCYTE ESTERASE NEG (NEG); URINE NITRATE NEG (NEG); URINE PH 5.5 (5-8); URINE PROTEIN NEG (NEG); URINE SPECIFIC GRAVITY 1.022 (1.003-1.035); URINE UROBILINOGEN 0.2 MG/DL (NEG)
[2017-01-08 12:08] LABS: AMPHETAMINE POS (NEG); BARBITURATES NEG (NEG); BENZODIAZEPINES NEG (NEG); COCAINE NEG (NEG); MARIJUANA NEG (NEG); OPIATES NEG (NEG); TRICYCLIC ANTIDEPRESSANTS NEG (NEG); U METHADONE NEG (NEG)
== END 2017-01-10 10:35 | DRG 885 ==
LOC: P1E 16:13 → P2S 01-06 03:16 → P1E 01-06 03:16 → P2S 01-06 03:16 → P1E 01-10 10:35
PROVIDERS: Psychiatry & Neurology Psychiatry
DX: F33.2 Major depressive disorder, recurrent severe without psychotic features (principal); F15.20 Other stimulant dependence, uncomplicated; F29 Unspecified psychosis not due to a substance or known physiological condition; F17.200 Nicotine dependence, unspecified, uncomplicated; K08.89 Other specified disorders of teeth and supporting structures
CPT/HCPCS: 80053; 80307; 81003; 85025